=== PATIENT | male | born 1990 | race American Indian/Alaskan Native ===

== ENCOUNTER 2018-11-18 14:52 | Emergency (ER) | payer SELFPAY ==
--- NOTE | 2018-11-18 14:59 | Emergency Department Report ---
Blank Doc - Documentation Documentation: This is a 27-year-old male that presents with neck pain and stiffness. Denies any injuries. This initial assessment/diagnostic orders/clinical plan/treatment(s) is/are subject to change based on patient's health status, clinical progression and re- assessment by fellow clinical providers in the ED. Further treatment and workup at subsequent clinical providers discretion. Patient/guardians urged not to elope from the ED as their condition may be serious if not clinically assessed and managed. Initial orders include: 1- Patient sent to [facility] for further evaluation and treatment 2- xray
[2018-11-18 15:00] VITALS: BP 138/87
--- NOTE | 2018-11-18 16:05 | XRay Report ---
PROCEDURE: XR SPINE CERVICAL 2-3V HISTORY: neck pain FINDINGS: AP, lateral and open-mouth views of the cervical spine were acquired and demonstrate no fra cture or malalignment of the cervical spine. The prevertebral soft tissues are within normal limits. The intervertebral disc space heights appear preserved. IMPRESSION: No fracture or malalignment of the cervical spine This document is electronically signed by Nacho Lpoes MD., November 18 2018 04:03:24 PM ET
--- NOTE | 2018-11-18 17:04 | Emergency Department Report ---
HPI - General Chief Complaint: Neck Pain/Injury Time Seen by Provider: 11/18/18 14:58 - HPI HPI: Patient is an otherwise healthy 27-year-old male who comes to the ER today complaining of neck and shoulder pain since he woke up this morning. He denies any trauma or fall or other mechanism suggestive of cervical injury. He has no fever. He is alert and oriented, ambulatory and afebrile. He is accompanied by his mother. He states that he just woke up like this. Patient referring to his neck which is consistent with muscle spasm/torticollis. Patient is ambulatory with stable vital signs on exam. Patient has not experienced this in the past. Patient has taken nothing at home to make his neck feel better. ED Past Medical Hx - Past Medical History Previous Medical History?: No - Surgical History Past Surgical History?: No - Family History Family history: no significant - Social History Smoking Status: Current Every Day Smoker Substance Use Type: None - Medications Home Medications: Home Medications Medication Instructions Recorded Confirmed Last Taken Type Cyclobenzaprine [Flexeril] 10 mg PO TID PRN #10 tablet 11/18/18 Unknown Rx Naproxen [Naprosyn] 500 mg PO BID PRN #20 tablet 11/18/18 Unknown Rx predniSONE [Deltasone] 20 mg PO DAILY #5 tablet 11/18/18 Unknown Rx ED Review of Systems ROS: Stated complaint: PAIN IN NECK Other details as noted in HPI Comment: All other systems reviewed and negative Physical Exam - Physical Exam Vital Signs: Vital Signs 11/18/18 14:58 Temperature 98.3 F Pulse Rate 76 Respiratory 16 Rate Blood Pressure 138/87 O2 Sat by Pulse 99 Oximetry Physical Exam: WDWN patient in NAD VS per RN flow sheet Alert and oriented to person, place and time. S1-S2. No S3 or S4. No systolic or diastolic murmur. No JVD. No pitting edema. Lungs clear to auscultation bilaterally anteriorly and posteriorly. Abdomen soft nontender bowel sounds X4 Moves all extremities well. Mood and affect appropriate. BILATERAL TRAP SPASM ON EXAM NO SPINE TENDERNESS ED Course Vital Signs 11/18/18 14:58 Temperature 98.3 F Pulse Rate 76 Respiratory 16 Rate Blood Pressure 138/87 O2 Sat by Pulse 99 Oximetry ED Medical Decision Making - Radiology Data Radiology results: report reviewed, image reviewed - Medical Decision Making xray neg medicated for spasm/ warm compresses applied medication provided some relief dc home with mother and dc plan of care. VSS ambulatory afebrile on dc from ER Vital Signs 11/18/18 11/18/18 14:58 17:45 Temperature 98.3 F Pulse Rate 76 Respiratory 16 15 Rate Blood Pressure 138/87 O2 Sat by Pulse 99 Oximetry - Differential Diagnosis muscle spasm Critical care attestation.: If time is entered above; I have spent that time in minutes in the direct care of this critically ill patient, excluding procedure time. ED Disposition Clinical Impression: Torticollis Disposition: DC-01 TO HOME OR SELFCARE Is pt being admited?: No Does the pt Need Aspirin: No Condition: Stable Instructions: Spasmodic Torticollis (ED) Additional Instructions: DIET TOLERATED MEDS ORDERED TODAY IN ER FOLLOW INSTRUCTIONS ON THE BOTTLE FOLLOW UP PCP WITHIN 48 HOURS TO ENSURE YOU ARE GETTING BETTER ACTIVITY TOLERATED MOTRIN OR TYLENOL FOR PAIN OR FEVER RETURN TO THE ER FOR WORSENING SYMPTOMS NOT RELIEVED BY YOUR MEDICATIONS. Prescriptions: predniSONE [Deltasone] 20 mg PO DAILY #5 tablet Cyclobenzaprine [Flexeril] 10 mg PO TID PRN #10 tablet PRN Reason: Muscle Spasm Naproxen [Naprosyn] 500 mg PO BID PRN #20 tablet PRN Reason: Pain Referrals: HALI LINDSAY MD [Staff Physician] - 3-5 Days Forms: Work/School Release Form(ED) Time of Disposition: 17:30
[2018-11-18] MEDS ORDERED: DECADRON IM ONE (17:28)
[2018-11-18] MEDS ORDERED: NORCO 5/325 PO ONE (17:29)
[2018-11-18] MEDS ORDERED: FLEXERIL PO ONE (17:29)
== END 2018-11-18 18:12 | disposition home or self-care (01) ==
LOC: ED 14:52
DX: M43.6 Torticollis (principal); F17.200 Nicotine dependence, unspecified, uncomplicated
CPT/HCPCS: 72040; 96372; 99283; J1100